=== PATIENT | male | born 1955 | race Caucasian/White ===

== ENCOUNTER → 2016-09-24 | Outpatient (CLI) | payer SELFPAY ==
[~2016-09-24] MED LIST: ASPIRIN 32325 MG/TAB PO; CEFTIN500 MG PO; CIPRO 500MG TA500 MG PO; COLACE 100100 MG/CAP PO; FLOMAX 0.40.4 MG/CAP PO; HYTRIN5 MG PO; LORTAB 7.5/5001 TAB; NO HOME MEDICATIONS; NORCO 325 MG-51 TAB PO; PERCOCET 325 MG1 TA2 PO; PROSCAR 5MG5 MG PO; RAPAFLO8 MG PO
== END ==
LOC: COL.RAD 14:48
DX: R31.0 Gross hematuria (principal)

== ENCOUNTER 2016-10-05 07:22 | Day surgery (SDC) | payer SELFPAY ==
[~2016-10-05] VITALS: Ht 160 cm; Wt 80.1 kg
[~2016-10-05 07:22] MED LIST changes: -COLACE 100100 MG/CAP PO; -FLOMAX 0.40.4 MG/CAP PO; -NORCO 325 MG-51 TAB PO
[2016-10-05] MEDS ORDERED: FLOMAX 0.40.4 MG/CAP PO (07:47)
[2016-10-05] MEDS ORDERED: COLACE 100100 MG/CAP PO (07:49)
[2016-10-05] MEDS ORDERED: NORCO 325 MG-51 TAB PO (07:49)
[2016-10-05 08:19] VITALS: BP 149/95; PULSE 53; TEMP 97.1
[2016-10-05 11:15] VITALS: BP 135/83; PULSE 58; TEMP 97.5
[2016-10-05 11:30] VITALS: BP 136/94; PULSE 75
[2016-10-05 11:45] VITALS: BP 132/82; PULSE 59
[2016-10-05 11:57] VITALS: TEMP 97.5
[2016-10-05 12:00] VITALS: BP 134/79; PULSE 62
== END 2016-10-05 12:25 | disposition home or self-care (01) ==
LOC: SDCO 07:22
DX: N21.0 Calculus in bladder (principal); N40.1 Benign prostatic hyperplasia with lower urinary tract symptoms; R35.0 Frequency of micturition; R39.12 Poor urinary stream; G89.29 Other chronic pain; M54.9 Dorsalgia, unspecified; R12 Heartburn; H10.9 Unspecified conjunctivitis
CPT/HCPCS: J0461; J1100; J2405; J2704; J3010; J7120; Q9967

== ENCOUNTER 2017-08-16 08:18 | Day surgery (SDC) | payer SELFPAY ==
[~2017-08-16] VITALS: Ht 160 cm; Wt 76.8 kg
[~2017-08-16 08:18] MED LIST changes: +COLACE 100100 MG/CAP PO; +FLOMAX 0.40.4 MG/CAP PO; +NORCO 325 MG-51 TAB PO
[2017-08-16 08:39] VITALS: BP 135/78; PULSE 50; TEMP 97.2
[2017-08-16] MEDS ORDERED: REVATIO20 MG PO (08:48)
[2017-08-16] MEDS ORDERED: LIPITOR 40MG TA40 MG PO (08:48)
[2017-08-16] MEDS ORDERED: B-121000 MCG PO (08:49)
[2017-08-16] MEDS ORDERED: ASPIRIN 81M81 MG/TA2 PO (08:49)
[2017-08-16] MEDS ORDERED: MOVEFREE PO (08:49)
[2017-08-16] MEDS ORDERED: OMEGA-31 SGL PO (08:50)
[2017-08-16 10:20] VITALS: BP 110/78; PULSE 49
[2017-08-16 10:35] VITALS: BP 99/75; PULSE 50
[2017-08-16 10:50] VITALS: BP 109/84; PULSE 51
== END 2017-08-16 11:15 | disposition home or self-care (01) ==
LOC: SDCO 08:18
DX: Z12.11 Encounter for screening for malignant neoplasm of colon (principal)
CPT/HCPCS: J2250; J3010; J7030

== ENCOUNTER 2018-03-31 21:10 | Emergency (ER) | payer SELFPAY ==
[~2018-03-31] VITALS: Ht 160 cm; Wt 79.5 kg
[~2018-03-31 21:10] MED LIST changes: +ASPIRIN 81M81 MG/TA2 PO; +B-121000 MCG PO; +LIPITOR 40MG TA40 MG PO; +MOVEFREE PO; +OMEGA-31 SGL PO; +REVATIO20 MG PO
[2018-03-31 21:11] VITALS: TEMP 97.9
[2018-03-31 21:59] LABS: BASO % 0.6 % (0.0-2.0); EOS # 0.1 (0.0-0.7); EOS % 1.9 % (0-4.0); GRAN # 3.6 (1.4-6.5); GRAN % 55.8 % (42.2-75.2); HEMATOCRIT 42.2 % (42.0-52.0); HEMOGLOBIN 14.1 g/dl (13.5-18.0); LYMPH # 2.1 (1.2-3.4); LYMPH % 32.8 % (20.0-51.0); MEAN CELL VOLUME 95 fl (80.0-100.0); MEAN CORPUSCULAR HEMOGLOBIN 32 pg (27.0-31.0); MEAN CORPUSCULAR HGB CONC 33 g/dl (33.0-37.0); MEAN PLATELET VOLUME 9.6 fl (7.4-10.4); MONO # 0.6 (0.1-0.6); MONO % 8.7 % (1.7-9.3); PLATELET COUNT 193 K/mm3 (130-400); RED BLOOD COUNT 4.46 M/mm3 (4.20-5.60); REDCELL DISTRIBUTION WIDTH-CV 12.3 % (11.5-14.5)
[2018-03-31 22:04] LABS: PROTHROMBIN TIME 11.8 SECONDS (9.7-12.8)
[2018-03-31 22:06] LABS: ALANINE AMINOTRANSFERASE 39 U/L (21-72); ALBUMIN 4.1 gm/dL (3.5-5.0); ALKALINE PHOSPHATASE 77 U/L (50-136); ANION GAP 5 mmol/L (7-16); AST,SGOT 26 U/L (15-37); BILIRUBIN,TOTAL 0.4 mg/dL (0.0-1.0); BLOOD UREA NITROGEN 15 mg/dL (9-20); CALCIUM 9.4 mg/dL (8.4-10.2); CARBON DIOXIDE 30 mmol/L (22-30); CHLORIDE 106 mmol/L (98-107); CREATININE, serum 1.04 mg/dL (0.66-1.25); GLUCOSE 106 mg/dL (74-106); POTASSIUM 3.5 mmol/L (3.4-5.0); SODIUM 142 mmol/L (137-145); TOTAL PROTEIN 7.4 gm/dL (6.4-8.2)
[2018-03-31 22:06] LABS: COLLECTION METHOD CLEAN CATCH
[2018-03-31 22:12] LABS: MUCOUS Present /lpf; PH 7 (5-8); SQUAMOUS EPITHELIAL 0-2 /hpf; URINE APPEARANCE Clear; URINE BACTERIA None Seen /hpf; URINE BILIRUBIN Negative (NEGATIVE); URINE BLOOD Negative (NEGATIVE); URINE COLOR Straw; URINE GLUCOSE Negative (NEGATIVE); URINE KETONE Negative (NEGATIVE); URINE LEUKOCYTE ESTERASE Negative (NEGATIVE); URINE NITRATE Negative (NEGATIVE); URINE PROTEIN(semi-quant) Negative (NEGATIVE); URINE RBC 0-2 /hpf; URINE UROBILINOGEN Negative (NEGATIVE)
[2018-03-31 22:17] LABS: TROPONIN-I < 0.012 ng/mL (0.000-0.034)
[2018-03-31] MEDS ORDERED: PRINIVIL10 MG PO (22:17)
[2018-03-31 22:59] VITALS: BP 160/103; PULSE 60
== END 2018-03-31 22:59 | disposition home or self-care (01) ==
LOC: COL.ER 21:10
PROVIDERS: Emergency Medicine
DX: I10 Essential (primary) hypertension (principal); R51 Headache; Z98.890 Other specified postprocedural states; Z79.82 Long term (current) use of aspirin

== ENCOUNTER 2018-07-07 16:12 | Emergency (ER) | payer SELFPAY ==
[~2018-07-07] VITALS: Ht 160 cm; Wt 84.5 kg
[~2018-07-07 16:12] MED LIST changes: +BACTRIM DS 8001 TAB PO; +CIALIS10 MG PO; +PRINIVIL10 MG PO
[2018-07-07 16:16] VITALS: TEMP 97.3
[2018-07-07 18:42] VITALS: BP 137/88; PULSE 61
== END 2018-07-07 18:48 | disposition home or self-care (01) ==
LOC: COL.ER 16:12
DX: G43.909 Migraine, unspecified, not intractable, without status migrainosus (principal); I10 Essential (primary) hypertension; Z90.89 Acquired absence of other organs; Z90.49 Acquired absence of other specified parts of digestive tract; Z79.82 Long term (current) use of aspirin
CPT/HCPCS: J1885; J2550; J7030

== ENCOUNTER 2020-06-20 08:09 | Outpatient (CLI) | payer SELFPAY ==
[~2020-06-20] VITALS: Ht 160 cm; Wt 85.6 kg
[2020-06-20] MEDS ORDERED: PRINIVIL20 MG PO (08:43)
[2020-06-20] MEDS ORDERED: VIAGRA 25MG TAB25 MG PO (08:45)
[2020-06-20] MEDS ORDERED: MOBIC15 MG PO (08:46)
[2020-06-20] MEDS ORDERED: HCTZ12.5TAB PO (08:48)
[2020-06-20 08:50] VITALS: BP 126/79; PULSE 64
[2020-06-20 10:00] VITALS: BP 110/62; BP 114/67; PULSE 54; PULSE 55
[2020-06-20 10:15] VITALS: BP 111/60; PULSE 50
[2020-06-20 10:30] VITALS: BP 112/68; PULSE 54
[2020-06-20 10:45] VITALS: BP 110/62; PULSE 55
[2020-06-20 11:15] VITALS: BP 114/63; PULSE 52
--- NOTE | 2020-06-20 11:18 | NUR ---
VSS. Discharge instructions given. Transferred to private car by kalen
[2021-01-05] MEDS ORDERED: NORCO 325 MG-51 TAB PO (08:21)
[2021-01-10] MEDS ORDERED: KLOR-CON SPRIN10 MEQ (13:24)
== END 2020-06-20 11:20 | disposition home or self-care (01) ==
LOC: COL.RAD 08:09
DX: M48.061 Spinal stenosis, lumbar region without neurogenic claudication (principal); S33.140A Subluxation of L4/L5 lumbar vertebra, initial encounter; N20.0 Calculus of kidney; Z98.890 Other specified postprocedural states
CPT/HCPCS: Q9967

== ENCOUNTER → 2020-06-30 | Outpatient (CLI) | payer SELFPAY ==
[~2020-06-30] VITALS: Ht 160 cm; Wt 84.0 kg
[~2020-06-30] MED LIST changes: +HCTZ12.5TAB PO; +KLOR-CON SPRIN10 MEQ; +MIRALAX PA17 GM/Dose PO; +MOBIC15 MG PO; +PRINIVIL20 MG PO; +VIAGRA 25MG TAB25 MG PO
[2020-06-30 13:15] VITALS: BP 113/74; PULSE 63
[2020-06-30 14:54] VITALS: BP 124/63; PULSE 59
== END ==
LOC: COL.RAD 12:46
DX: M51.36 Other intervertebral disc degeneration, lumbar region (principal)
CPT/HCPCS: J3301

== ENCOUNTER → 2020-09-14 | Outpatient (CLI) | payer SELFPAY ==
[~2020-09-14] VITALS: Ht 160 cm; Wt 86.2 kg
[2020-09-14 09:56] VITALS: BP 124/73; PULSE 63
--- NOTE | 2020-09-14 09:57 | NUR ---
NO KPAIN CURRENTLY. WHEN PT BENDS OVER HE FEELS A CRAMPING FROM BUTTOCKS TO FEET. LEFT IS WORSE THAN RIGHT.
[2020-09-14 10:38] VITALS: BP 117/82; PULSE 60
== END ==
LOC: COL.RAD 09:30
DX: M51.36 Other intervertebral disc degeneration, lumbar region (principal)
CPT/HCPCS: J3301

== ENCOUNTER 2020-10-06 16:19 | Emergency (ER) | payer SELFPAY ==
[~2020-10-06] VITALS: Ht 160 cm; Wt 87.7 kg
[~2020-10-06 16:19] MED LIST changes: -KLOR-CON SPRIN10 MEQ; -MIRALAX PA17 GM/Dose PO
[2020-10-06 17:01] VITALS: TEMP 97.9
[2020-10-06 17:37] LABS: COLLECTION METHOD CLEAN CATCH
[2020-10-06 17:39] LABS: BASO % 0.6 % (0.0-2.0); EOS # 0.2 (0.0-0.7); EOS % 3.3 % (0-4.0); GRAN # 2.4 (1.4-6.5); GRAN % 49.8 % (42.2-75.2); HEMATOCRIT 39.3 % (42.0-52.0); HEMOGLOBIN 13.2 g/dl (13.5-18.0); LYMPH # 1.7 (1.2-3.4); LYMPH % 34.9 % (20.0-51.0); MEAN CELL VOLUME 96 fl (80.0-100.0); MEAN CORPUSCULAR HEMOGLOBIN 32 pg (27.0-31.0); MEAN CORPUSCULAR HGB CONC 34 g/dl (33.0-37.0); MEAN PLATELET VOLUME 9.6 fl (7.4-10.4); MONO # 0.6 (0.1-0.6); MONO % 11.4 % (1.7-9.3); PLATELET COUNT 206 K/mm3 (130-400); RED BLOOD COUNT 4.08 M/mm3 (4.20-5.60); REDCELL DISTRIBUTION WIDTH-CV 12.9 % (11.5-14.5)
[2020-10-06 17:44] LABS: MUCOUS Present /lpf; PH 6 (5-8); SQUAMOUS EPITHELIAL None Seen /hpf; URINE APPEARANCE Clear; URINE BACTERIA None Seen /hpf; URINE BILIRUBIN Negative (NEGATIVE); URINE BLOOD Negative (NEGATIVE); URINE COLOR Yellow; URINE GLUCOSE Negative (NEGATIVE); URINE KETONE Negative (NEGATIVE); URINE LEUKOCYTE ESTERASE Negative (NEGATIVE); URINE NITRATE Negative (NEGATIVE); URINE PROTEIN(semi-quant) Negative (NEGATIVE); URINE RBC 0-2 /hpf; URINE UROBILINOGEN Negative (NEGATIVE)
[2020-10-06 17:53] LABS: ALANINE AMINOTRANSFERASE 36 U/L (4-49); ALKALINE PHOSPHATASE 78 U/L (50-136); ANION GAP 3 mmol/L (7-16); AST,SGOT 32 U/L (15-37); BILIRUBIN,TOTAL 0.5 mg/dL (0.0-1.0); BLOOD UREA NITROGEN 16 mg/dL (9-20); C-REACTIVE PROTEIN < 0.5 mg/dL (0.0-0.9); CALCIUM 9.2 mg/dL (8.4-10.2); CARBON DIOXIDE 27 mmol/L (22-30); CHLORIDE 108 mmol/L (98-107); CREATININE, serum 1.03 (0.66-1.25); GLUCOSE 98 mg/dL (74-106); LIPASE 64 U/L (23-300); POTASSIUM 3.6 mmol/L (3.4-5.0); SODIUM 138 mmol/L (137-145); TOTAL PROTEIN 7.5 gm/dL (6.4-8.2)
[2020-10-06] MEDS ORDERED: COLACE 100100 MG/CAP PO (19:57)
[2020-10-06] MEDS ORDERED: FLOMAX 0.40.4 MG/CAP PO (19:57)
[2020-10-06] MEDS ORDERED: MIRALAX PA17 GM/Dose PO (19:57)
[2020-10-06] MEDS ORDERED: NORCO 325 MG-51 TAB PO (19:57)
[2020-10-06 20:30] VITALS: BP 130/84; PULSE 69
[2021-01-05] MEDS ORDERED: NORCO 325 MG-51 TAB PO (08:21)
[2021-01-10] MEDS ORDERED: KLOR-CON SPRIN10 MEQ (13:24)
== END 2020-10-06 20:30 | disposition home or self-care (01) ==
LOC: COL.ER 16:19
PROVIDERS: Family Medicine
DX: N13.2 Hydronephrosis with renal and ureteral calculous obstruction (principal); I10 Essential (primary) hypertension; Z79.899 Other long term (current) drug therapy
CPT/HCPCS: J2405; J7120; Q9967

== ENCOUNTER → 2021-01-10 | Outpatient (CLI) | payer SELFPAY ==
[~2021-01-10] VITALS: Ht 160 cm; Wt 82.1 kg
[~2021-01-10] MED LIST changes: +KLOR-CON SPRIN10 MEQ; +MIRALAX PA17 GM/Dose PO
[2021-01-10 13:25] VITALS: BP 142/74; PULSE 54; TEMP 98.5
[2021-01-10 14:13] VITALS: BP 159/82; PULSE 56
== END ==
LOC: COL.RAD 13:00
DX: M51.36 Other intervertebral disc degeneration, lumbar region (principal)
CPT/HCPCS: J3301

== ENCOUNTER → 2021-05-31 | Outpatient (CLI) | payer SELFPAY ==
[~2021-05-31] VITALS: Ht 160 cm; Wt 84.5 kg
[~2021-05-31] MED LIST changes: +POTASSIUM GLUC595 M1 PO
[2021-05-31 12:56] VITALS: BP 106/61; PULSE 48; TEMP 97.6
[2021-05-31 13:20] VITALS: BP 123/75; PULSE 49
== END ==
LOC: COL.RAD 12:00
DX: M51.36 Other intervertebral disc degeneration, lumbar region (principal)
CPT/HCPCS: J3301

== ENCOUNTER → 2021-12-14 | Outpatient (CLI) | payer OTHER | LOC: COL.RAD 13:00 | DX: R51.9 Headache, unspecified (principal); Z98.890 Other specified postprocedural states | CPT/HCPCS: Q9967 ==

== ENCOUNTER → 2021-12-22 | Outpatient (CLI) | payer OTHER | LOC: COL.RAD 10:24 | DX: I77.89 Other specified disorders of arteries and arterioles (principal) | CPT/HCPCS: Q9967 ==

== ENCOUNTER 2022-05-10 12:29 | Outpatient (CLI) | payer OTHER ==
[~2022-05-10] VITALS: Ht 160 cm; Wt 84.3 kg
[2022-05-10] MEDS ORDERED: ZESTORETIC 12.51 TA1 PO (13:00)
[2022-05-10] MEDS ORDERED: HCTZ12.5TAB (13:03)
[2022-05-10 13:05] VITALS: BP 120/80; PULSE 51; TEMP 97.5
[2022-05-10 15:00] VITALS: BP 125/85; PULSE 53; PULSE 54
[2022-05-10 15:15] VITALS: BP 117/84; PULSE 53
[2022-05-10 15:30] VITALS: BP 113/75; PULSE 53
[2022-05-10 15:45] VITALS: BP 111/79; PULSE 56
[2022-05-10 16:00] VITALS: BP 129/84; PULSE 61
--- NOTE | 2022-05-10 16:10 | NUR ---
DC instructions reviewed with pt, he expresses understanding. Bandaid over puncture site remains clean, dry and intact. He ambulates to restroom with steady gait. He states discomfort to legs he had post procedure is much improved. He has some soreness to left leg with activity. He knows to call physcian if this pain is not improved tomorrow or he has other concerns. He is assisted out to 's car by wheelchair with belongings.
== END 2022-05-10 16:10 | disposition home or self-care (01) ==
LOC: COL.RAD 12:29
DX: M51.36 Other intervertebral disc degeneration, lumbar region (principal); M48.061 Spinal stenosis, lumbar region without neurogenic claudication
CPT/HCPCS: 32596

== ENCOUNTER → 2022-06-13 | Outpatient (CLI) | payer OTHER ==
[~2022-06-13] MED LIST changes: +HCTZ12.5TAB; +ZESTORETIC 12.51 TA1 PO
== END ==
LOC: MHCPAIN 14:09
DX: M47.897 Other spondylosis, lumbosacral region (principal); M54.16 Radiculopathy, lumbar region; M48.062 Spinal stenosis, lumbar region with neurogenic claudication; M96.1 Postlaminectomy syndrome, not elsewhere classified
CPT/HCPCS: G0463

== ENCOUNTER → 2022-08-07 | Outpatient (CLI) | payer OTHER | LOC: MHCPAIN 12:49 | DX: M48.062 Spinal stenosis, lumbar region with neurogenic claudication (principal); M54.16 Radiculopathy, lumbar region; M25.561 Pain in right knee; M25.562 Pain in left knee | CPT/HCPCS: G0463 ==